=== PATIENT | female | born 1995 | race Caucasian/White ===

== ENCOUNTER → 2017-11-07 08:56 | Emergency (ER) | payer OTHER ==
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
--- NOTE | 2017-11-07 10:24 | RAD ---
INDICATION: Medial right hand and wrist pain after a fall COMPARISON: None. TECHNIQUE: 5 views of the right hand and 3 views of the right wrist were obtained. FINDINGS: Overlying the oblique view of the right hand, there is a 6 mm bony focus between the proximal heads of the right fourth and fifth metacarpals. On the AP view of the right hand there are 2 bony foci in this vicinity measuring 6 and 7 mm in greatest dimension. There is no definite donor site identified. Otherwise the adequately corticated bones are in normal alignment. Joint spaces appear maintained. IMPRESSION: There are 2 well-corticated bony foci overlying the ulnar aspect carpometacarpal junction of indeterminate clinical significance. There are no fracture donor sites to confirm the presence of an acute fracture with dislocation. The remaining visualized bones are intact and appropriately aligned. If the patient's symptoms persist, follow-up imaging is recommended.
[2017-11-07 12:29] VITALS: BP 104/66
== END | disposition home or self-care (01) ==
LOC: ED 08:56
DX: S63.501A Unspecified sprain of right wrist, initial encounter (principal); S63.91XA Sprain of unspecified part of right wrist and hand, initial encounter; V18.4XXA Pedal cycle driver injured in noncollision transport accident in traffic accident, initial encounter; Y93.55 Activity, bike riding; Y92.9 Unspecified place or not applicable
CPT/HCPCS: 29125; 99282